=== PATIENT | female | born 1985 | race African-American/Black ===

== ENCOUNTER 2016-08-14 19:52 | Emergency (ER) | payer OTHER ==
--- NOTE | 2016-08-14 20:10 | PDOC ---
History of Present Illness - General History Source: Patient Exam Limitations: No Limitations - History of Present Illness Initial Comments: 08/14/16 20:29 The patient is a 31 year old female with no significant past medical history who presents to the ED with complaints of bilateral hand tingling and numbness for the past two and a half weeks. The patient states that the symptoms occur mostly in her fingertips with the right hand worse than the left. She reports having liposuction performed three months ago on her back and stomach and denies experiencing any similar symptoms before her procedure. The patient denies any headache, double vision, or any other neurological symptoms. She denies any recent illness, fever, chills, nausea, vomiting, diarrhea. She denies any urinary symptoms. PAST MEDICAL HISTORY: no significant history PAST SURGICAL HISTORY: no significant history FAMILY HISTORY: no pertinent history SOCIAL HISTORY: Pt lives with family and is employed. MEDICATIONS: reviewed ALLERGIES: As per nursing notes General: No fevers or chills, no weakness, no weight loss HEENT: No change in vision. No sore throat,. No ear pain CardioVascular: No chest pain or shortness of breath Respiratory:No cough, or wheezing. Gastrointestinal: no nausea, vomiting, diarrhea or constipation, No rectal bleeding Genitourinary: No dysuria, hematuria, or frequency Musculoskeletal: No joint or muscle pain or swelling Neurologic: Present: bilateral hand numbness and tingling No headache, vertigo, dizziness or loss of consciousness Psychiatric: nor depression Skin: No rashes or easy bruising Endocrine: no increased thirst or abnormal weight change Allergic: no skin or latex allergy All other systems reviewed and normal GENERAL: The patient is awake, alert, and fully oriented, in no acute distress. HEAD: Normal with no signs of trauma. EYES: Pupils equal, round and reactive to light, extraocular movements intact, sclera anicteric, conjunctiva clear. EXTREMITIES: Normal range of motion, no edema. NEUROLOGICAL: Normal sensation to bilateral light touch. Normal strength and normal motor. Normal speech, normal gait. PSYCH: Normal mood, normal affect. SKIN: Warm, Dry, normal turgor, no rashes or lesions noted. <Leta Patel - Last Filed: 08/14/16 21:38> - General History Source: Patient Exam Limitations: No Limitations - History of Present Illness Initial Comments: 08/14/16 21:41 A portion of this note was documented by scribe services under my direction. I have reviewed the details of the note, within reason, and agree with the documentation. The case summary and management plan written by me. Assessment and plan: This is a 31-year-old female who comes in complaining of intermittent paresthesias in her hands 2 weeks and numbness 2 days. Symptoms are primarily in the fingertips of her hands bilateral. Patient otherwise has had no movement new medication, has no trauma has no neck pain has no infectious symptoms. Patient had a workup including a normal white count and labs as well as a normal head CT. Discussed with patient the possibility of MS and the importance of following up with a neurologist for an MRI and MS workup. Patient discharged home. <Bree Haji I - Last Filed: 08/14/16 21:45> - General Chief Complaint: Head/Neck problem Stated Complaint: HAND/FINGER TINGLING & NUMBNESS Time Seen by Provider: 08/14/16 20:08 Past History <Leta Patel - Last Filed: 08/14/16 21:38> <Bree Haji I - Last Filed: 08/14/16 21:45> - Past Medical History Allergies/Adverse Reactions: Allergies Allergy/AdvReac Type Severity Reaction Status Date / Time No Known Allergies Allergy Verified 08/14/16 20:12 Home Medications: Ambulatory Orders NK [No Known Home Medication] 08/14/16 Review of Systems - Review of Systems Able to Perform ROS?: Yes All Other Systems: Reviewed and Negative <Leta Patel - Last Filed: 08/14/16 21:38> *Physical Exam - Vital Signs Last Vital Signs Temp Pulse Resp BP Pulse Ox 98.2 F 81 15 116/84 99 08/14/16 20:08 08/14/16 20:08 08/14/16 20:08 08/14/16 20:08 08/14/16 20:08 <Leta Patel - Last Filed: 08/14/16 21:38> ED Treatment Course - LABORATORY CBC & Chemistry Diagram: 08/14/16 20:20 08/14/16 20:20 - RADIOLOGY Radiograph Interpretation: 08/14/16 21:[address] as reviewed by Dr. DellaBadia reports no mass, no acute changes in the brain identified. No suspicious findings <Leta Patel - Last Filed: 08/14/16 21:38> - LABORATORY CBC & Chemistry Diagram: 08/14/16 20:20 08/14/16 20:20 <Bree Haji I - Last Filed: 08/14/16 21:45> *DC/Admit/Observation/Transfer - Attestations Scribe Attestion: 08/14/16 20:31 Documentation prepared by Leta Patel, acting as medical equipment repair technician for Bree Haji MD. <Leta Patel - Last Filed: 08/14/16 21:38> - Discharge Dispostion Admit: No <Bree Haji I - Last Filed: 08/14/16 21:45> Diagnosis at time of Disposition: Numbness and tingling in both hands - Discharge Dispostion Disposition: HOME Condition at time of disposition: Good - Referrals Referrals: Blanca Guy [Primary Care Provider] - - Patient Instructions Additional Instructions: Your head CT was normal and your lab work was also normal. It is important that you follow-up with a neurologist for further evaluation and workup to rule out MS. If you need a neurologist call [facility] at [phone] for an appointment in the morning Return to the emergency department immediately with ANY new, persistent or worsening symptoms. Continue any medications as previously prescribed by your physician. You should follow up with your primary doctor as soon as possible regarding today's emergency department visit. . Please make sure your doctor reviews the results of your emergency evaluation. Thank you for coming to the Emergency Department today for your care. It was a pleasure to see you today. Please note that your evaluation is INCOMPLETE until you follow-up with your doctor.
[2016-08-14 20:19] VITALS: BP 116/84; PULSE 81; TEMP 98.2; BMI 33.8
[2016-08-14 20:46] LABS: MEAN PLT VOLUME 8.3 fl (7.5-11.1); RDW 13.2 % (11.6-15.6); WHITE BLOOD COUNT 6.8 K/mm3 (4.0-10.8)
[2016-08-14 20:48] LABS: URINE APPEARANCE Clear; URINE BILIRUBIN Negative (NEGATIVE); URINE BLOOD Negative (NEGATIVE); URINE GLUCOSE (UA) Negative (NEGATIVE); URINE KETONE Trace (NEGATIVE); URINE LEUK ESTERASE Trace (NEGATIVE); URINE NITRITE Negative (NEGATIVE); URINE PROTEIN Trace (NEGATIVE); URINE UROBILINOGEN 1.0 E.U/dl (0.2-1.0)
[2016-08-14 20:49] LABS: MCH 27.4 pg (25.7-33.7); MCHC 32.8 g/dl (32.0-36.0); MEAN CELL VOLUME 83.7 fl (80-96); PLATELET COUNT 305 K/MM3 (134-434)
[2016-08-14 20:49] LABS: URINE COLOR YELLOW
[2016-08-14 20:56] LABS: ALBUMIN 3.9 g/dl (3.5-5.0); ALK PHOS 67 U/L (32-92); ANION GAP 8 (8-16); BILIRUBIN,TOTAL 0.5 mg/dl (0.2-1.0); CO2 22 mmol/L (22-28); CREATININE 0.7 mg/dl (0.6-1.3); GLUCOSE,RANDOM 90 mg/dl (74-106); SGOT/AST 21 U/L (10-42); SGPT/ALT 17 U/L (10-40); TOT PROT 7.4 g/dl (6.4-8.3)
[2016-08-14 21:52] LABS: PLATELET COMMENT2 FEW GIANT PLTS
[2016-08-15 04:40] LABS: C-REACTIVE PROTEIN 0.3 MG/DL (0.00-0.3)
== END 2016-08-14 21:59 | disposition home or self-care (01) ==
LOC: FER 19:52
DX: R20.2 Paresthesia of skin (principal); R20.0 Anesthesia of skin
CPT/HCPCS: 36415; 70450-TC; 80053; 81003; 84703; 85025; 86140; 99282-25